=== PATIENT | male | born 1980 | race African-American/Black ===

== ENCOUNTER 2018-08-30 07:44 | Emergency (ER) | payer OTHER ==
[2018-08-30] MEDS ORDERED: Albuterol/Ipratropium Neb 3 ML AERS HHN ONE ×2 (08:09→08:13)
--- NOTE | 2018-08-30 08:25 | ED Physician Chart ---
ED Chief Complaint/HPI - Patient Information Date Seen:: 08/30/18 Time Seen:: 08:00 Chief Complaint:: shortness of breath History of Present Illness:: Patient's had intermittent shortness of breath for the last 2 weeks increased since last night. Patient has a nonproductive cough worse at night. Patient had a course of prednisone 2-3 weeks ago which improved his symptoms. Allergies:: Allergies Allergy/AdvReac Type Severity Reaction Status Date / Time No Known Allergies Allergy Verified 08/30/18 07:56 Vitals:: Vital Signs - 8 hr 08/30/18 08/30/18 08:00 08:16 Temp 96.9 F HR 96 85 RR 16 18 BP 139/91 O2 Sat % 97 100 Historian:: Patient Review:: Nurse's Note Reviewed ED Review of Systems - Review of Systems General/Constitutional: No fever, No chills Skin: No skin lesions Head: No headache Eyes: No loss of vision ENT: No earache Neck: No neck pain Cardio Vascular: No chest pain Pulmonary: SOB, No cough, Wheezing GI: No vomiting, No diarrhea G/U: No dysuria Musculoskeletal: No bone or joint pain Endocrine: No polyuria Psychiatric: No prior psych history Hematopoietic: No bruising Allergic/Immuno: No urticaria Neurological: No syncope, No focal symptoms, No weakness ED Past Medical History - Past Medical History Past Medical History: Asthma/COPD Family History: Diabetes Melitus, HTN Social History: Smoker, No Alcohol, Other (quit smoking 3 days ago) Surgical History: None Psychiatricy History: None Medication: Reviewed Family Medical History - Family Member Mother Ethnicity: Living Status: Still Living ED Physical Exam - Physical Examination General/Constitutional: Awake, Well-developed, well-nourished, Alert, No distress, GCS 15, Non-toxic appearing, Ambulatory Head: Atraumatic Eyes: Lids, conjuctiva normal, PERRL Skin: Nl inspection, No rash ENMT: TM canals nl, Nasal exam nl, Lips, teeth, gums nl, Oropharynx nl, Tonsils nl Neck: No nuchal rigidity Respiratory: Nl effort/Exclusion Other Respiratory comments:: 2 out of 4 inspiratory and extraocular wheezing; prolonged expiratory phase Cardio Vascular: RRR, No murmur, gallop, rubs GI: No tenderness/rebounding/guarding, No organomegaly, No hernia, Normal BS's : No CVA tenderness Extremities: Normal digits & nails Neuro/Psych: No focal deficits ED Assessment - Assessment General Assessment: At 0830 patient felt better after the first breathing treatment and does not wish a second breathing treatment ED Septic Shock - . Is Septic Shock (SBP<90, OR Lactate>4 mmol\L) present?: No - <6hrs of presentation: Vital Signs: Vital Signs - 8 hr 08/30/18 08/30/18 08:00 08:16 Temp 96.9 F HR 96 85 RR 16 18 BP 139/91 O2 Sat % 97 100 ED Reassessment (Disposition) - Reassessment Reassessment Condition:: Improved - Diagnosis Diagnosis:: Acute exacerbation asthma - Aftercare/Follow up Instructions Aftercare/Follow-Up Instructions:: Refer to Discharge Instructions Medication Prescribed:: Ventolin metered-dose inhaler to take 2 puffs every 4 hours as necessary for shortness of breath and prednisone 60 mg a day for 5 days to start in 24 hours - Patient Disposition Discharge/Transfer:: Home Condition at Disposition:: Stable, Improved
== END 2018-08-30 08:49 | disposition home or self-care (01) ==
LOC: ER 07:44
DX: J45.901 Unspecified asthma with (acute) exacerbation (principal); Z87.891 Personal history of nicotine dependence
CPT/HCPCS: 94640; Z7502

== ENCOUNTER 2019-03-08 07:50 | Emergency (ER) | payer OTHER ==
--- NOTE | 2019-03-08 11:11 | ED Physician Chart ---
ED Chief Complaint/HPI - Patient Information Date Seen:: 03/08/19 Time Seen:: 08:00 Chief Complaint:: Penile Discharge History of Present Illness:: onset x 3 days of penile discharge after having unprotected sexual intercourse one week ago; pt denies trauma, H/As, S/T, neck pain, rash, itching, cough, weakness, dizziness, bleeding, vertigo, C/P, SOB, Abd. Pain, A/N/V/D/C, fever, chills, or urinary s/s Allergies:: Allergies Allergy/AdvReac Type Severity Reaction Status Date / Time No Known Allergies Allergy Verified 08/30/18 07:56 Vitals:: Vital Signs - 8 hr 03/08/19 03/08/19 08:00 08:35 Temp 98.5 F 97.7 F HR 102 91 RR 16 16 BP 148/75 149/91 O2 Sat % 95 97 Historian:: Patient Review:: Nurse's Note Reviewed, Old Chart Reviewed ED Review of Systems - Review of Systems General/Constitutional: No fever, No chills, No weight loss, No weakness, No diaphoresis, No edema, No loss of appetite Skin: No skin lesions, No rash, No bruising Head: No headache, No light-headedness Eyes: No loss of vision, No pain, No diplopia ENT: No earache, No nasal drainage, No sore throat, No tinnitus Neck: No neck pain, No swelling, No thyromegaly, No stiffness, No mass noted Cardio Vascular: No chest pain, No palpitations, No PND, No orthopnea, No edema Pulmonary: No SOB, No cough, No sputum, Wheezing GI: No nausea, No vomiting, No diarrhea, No pain, No melena, No hematochezia, No constipation, No hematemesis G/U: No dysuria, No frequency, No hematuria, No nacturia Musculoskeletal: No bone or joint pain, No back pain, No muscle pain Endocrine: No polyuria, No polydipsia Psychiatric: No prior psych history, No depression, No anxiety, No suicidal ideation, No homicidal ideation, No auditory hallucination, No visual hallucination Hematopoietic: No bruising, No lymphadenopathy Allergic/Immuno: No urticaria, No angioedema Neurological: No syncope, No focal symptoms, No weakness, No paresthesia, No headache, No seizure, No dizziness, No confusion, No vertigo ED Past Medical History - Past Medical History Obtainable: Yes Past Medical History: Asthma/COPD Family History: None Social History: Non Smoker, No Alcohol, No Drug Use, Single Surgical History: None Psychiatricy History: None Medication: Reviewed Family Medical History - Family Member Mother Ethnicity: Living Status: Still Living Brother Living Status: Still Living Other Medical History: prostate ca ED Physical Exam - Physical Examination General/Constitutional: Awake, Well-developed, well-nourished, Alert, No distress, GCS 15, Non-toxic appearing, Ambulatory Head: Atraumatic Eyes: Lids, conjuctiva normal, PERRL, EOMI Skin: Nl inspection, No rash, No skin lesions, No ecchymosis, Well hydrated, No lymphadenopathy ENMT: External ears, nose nl, TM canals nl, Nasal exam nl, Lips, teeth, gums nl , Oropharynx nl, Tonsils nl Neck: Nontender, Full ROM w/o pain, No JVD, No nuchal rigidity, No bruit, No mass, No stridor Other Neck comments:: supple; no meningeal signs; no cervical tenderness; no bruits Respiratory: Nl effort/Exclusion, Clear to Auscultation, No Wheeze/Rhonchi/Rales Cardio Vascular: RRR, No murmur, gallop, rubs, NL S1 S2, Carotid/Femoral/Distal pulses equal bilaterally GI: No tenderness/rebounding/guarding, No organomegaly, No hernia, Normal BS's, Nondistended, No mass/bruits, No McBurney tenderness, Rectum exam nl Other GI comments:: no pulsatile masses : No CVA tenderness, NL external genitalia Other comments:: + White Purulent Penile Discharge; no rash; no cellulitis; no FBs; no scrotal tenderness or swelling; no TT; no orchitis; no cellulitis Extremities: No tenderness or effusion, Full ROM, normal strength in all extremities, No edema, Normal digits & nails Neuro/Psych: Alert/oriented, DTR's symmetric, Normal sensory exam, Normal motor strength, Judgement/insight normal, Mood normal, Normal gait, No focal deficits Other Neuro/Psych comments:: no focal signs Misc: Normal back, No paraspinal tenderness ED Labs/Radiology/EKG Results - Lab Results Comments:: deferred by pt ED Septic Shock - . Is Septic Shock (SBP<90, OR Lactate>4 mmol\L) present?: No - <6hrs of presentation: Vital Signs: Vital Signs - 8 hr 03/08/19 03/08/19 08:00 08:35 Temp 98.5 F 97.7 F HR 102 91 RR 16 16 BP 148/75 149/91 O2 Sat % 95 97 ED Reassessment (Disposition) - Reassessment Reassessment:: pt is asymptomatic upon discharge Reassessment Condition:: Improved - Diagnosis Diagnosis:: Penile Discharge; STD; Urethritis - Aftercare/Follow up Instructions Aftercare/Follow-Up Instructions:: Counseled pt regarding lab results/diagnosis & need follow up, Refer to Discharge Instructions, Counseled pt & family regarding lab results/diagnosis & need follow up Medication Prescribed:: Rx: Doxycycline 100mg po bid x 10 days; Avoid Sex until medical F/U; Refer to [facility]; Have sexual partner evaluated and treated by PMD - Patient Disposition Discharge/Transfer:: Home Condition at Disposition:: Stable, Improved (Have Blood Pressure re-checked in one day by PMD; RTER prn if existing s/s reoccur and/or get worse and/or any other new s/s occur; ACIs given for all above Dx; Refer to Specialist/ Urologist/ID Specialist/Immigration Lawyer [facility]; F/U with PMD in one day or prn; RTER prn if concerned)
== END 2019-03-08 08:41 | disposition home or self-care (01) ==
LOC: ER 07:50
DX: A64 Unspecified sexually transmitted disease (principal); N34.2 Other urethritis; J44.9 Chronic obstructive pulmonary disease, unspecified
CPT/HCPCS: 99283; 96372; J0696; A4216; Z7502